=== PATIENT | male | born 1955 | race Caucasian/White ===

== ENCOUNTER 2018-10-11 12:16 | Emergency (ER) | payer OTHER, SELFPAY ==
[2018-10-11] VITALS (17 sets, daily range): BP systolic 126–166; BP diastolic 75–110; PULSE 79–94; RESP 8–29; TEMP 36.1–37.1; O2SAT 86–100
--- NOTE | 2018-10-11 12:31 | DI.RAD_ITS ---
SYMPTOM/DIAGNOSIS: RT CP AFTER FALL, R/O RIB FX AND PNEUMONIA CHEST X-RAY: Portable AP view. No priors. Heart size and pulmonary vasculature are within normal limits. The lungs appear clear. No effusion or definite pneumothorax seen based on this chest x-ray. The bones appear intact. IMPRESSION: No acute pulmonary process. Please refer to the CT scan of the chest, abdomen and pelvis for complete details.
[2018-10-11] MEDS: Acetaminophen 500 MG TAB 1000 MG PO (12:38)
[2018-10-11] MEDS: Ibuprofen 800 MG TAB PO (12:39)
[2018-10-11] MEDS: Lidocaine 5% Patch 1 PATCH TP (12:39)
[2018-10-11] MEDS: MORPHine 10 MG/ML VIAL 4 MG IVP (12:40)
--- NOTE | 2018-10-11 12:42 | ED.GENADUL_ITS ---
Discharge Plan Disposition Patient Disposition: HOME Condition: Good Discharge Details Chief Complaint: Chest/Rib Clinical Impression: Pneumothorax, Right rib fracture, AAA (abdominal aortic aneurysm), Nodule of kidney Primary Care Provider: ANGEL[facility] Provider: Jani Mendoza Home Meds and New Rx's Prescriptions: New lidocaine [Lidoderm] 1 PATCH patch 1 patch Topical Q24H Qty: 4 RF: 0 acetaminophen [Mapap Extra Strength] 500 MG tablet 1,000 mg PO Q6H 5 Days Qty: 60 RF: 0 ibuprofen [Motrin IB] 200 MG tablet 600 mg PO Q6H 5 Days Qty: 60 RF: 0 hydrocodone-acetaminophen 7.5-325 mg tablet 1 tab PO Q6H Qty: 14 RF: 0 No Action gabapentin 300 mg Capsule 300 mg PO TID RF: 0 Discharge Instructions Instructions: Traumatic Pneumothorax (ED), Rib Fracture (ED), Abdominal Aortic Aneurysm (GEN) Additional Instructions: Please take the Tylenol, Motrin and Lidoderm patches as needed. Please take the Millis is only for breakthrough pain. If you take the Millis do not take a Tylenol as Millis does have Tylenol in it already. Please continue to use the incentive spirometer daily, make sure you are breathing greater than [id number] mL. Please follow-up with your family doctor as soon as possible for reevaluation of the nodules, as well as your AAA. If you notice any shortness of breath, worsening chest pain, feeling like he want to pass out, please return immediately. If you notice any worsening of your symptoms, or any new symptoms such as vomiting, diarrhea, fever, chills, shortness of breath, chest pain, numbness, weakness, or fainting , please return immediately to the emergency department for reevaluation. Please follow up with your primary care provider as soon as possible for reassessment and reevaluation. As always, it was a pleasure participating in your medical care today. CT abdomen and pelvis iMPRESSION: 1. Small pneumothorax anteriorly in the right base 7 mm in width. Anterior to the heart 12 mm in width. 2. Minimally displaced fracture right posterior 10th rib. 3. Mild right pleural effusion. 4. Mild opacities in both bases may represent contusions. 5. Unruptured ascending aortic aneurysm [address] abdomen and pelvis iMPRESSION: 1. 14 mm nodule posterior right kidney 42 Hounsfield units. Recommend surgical evaluation. Alternatively, if patient has a limited life expectancy or significant co-morbidities, 3-[address] or MRI follow-up could be performed. 2. Left adrenal nodule 2.1 x 1.4 cm . Recommend follow-up abdominal CT or MR in 12 months. Alternatively, if there is a history of malignancy, consider further evaluation with PET, unenhanced abdominal CT or MR. 3. Borderline splenomegaly 13 cm. Differential diagnosis of splenomegaly is lymphoma/leukemia, mononucleosis, hemolytic anemia, portal hypertension. 4. 17 mm nodule 28 Hounsfield units left lobe of the liver 10 mm nodule left lobe of the liver in 19-21 Hounsfield units Recommend follow-up abdominal CT or MR in 6 months. Medical Decision Making This is a pleasant 63-year-old male with no significant past medical history who presents today for evaluation of right-sided rib pain. The patient [place] when he had a mechanical slip and fall and hit his right back on a hard rock. Patient immediately had pleuritic chest pain, and came in for evaluation. Physical exam demonstrates no evidence of tracheal deviation, hypotension, tachycardia, or hypoxemia. I am concerned for rib fractures versus pneumothorax, we will get a chest x-ray to rule out pneumothorax. No abdominal tenderness, pain is on the right rather than left away from the spleen. Feel that intra-abdominal etiology is clinically inconsistent with his current clinical picture. Bedside ultrasound does demonstrate minimal lung siding however the findings are present on both sides concerning for splinting. I feel that x-ray would be helpful for further rule out. We will control the patient's pain, and reassess. 1:15 PM 3 does demonstrate questionable pneumothorax on the right. However x-ray image is certainly poor. There is certainly no evidence of tension pneumothorax, no evidence of tracheal deviation both clinically and on chest x-ray. He appears hemodynamically stable. With pain medication the patient's pain is now completely relieved and he is stating I would like to go out hunting again please. We will get a CT scan for further evaluation, prior to any invasive procedure. EKG 12: 33 Rate 88, intervals normal, sinus rhythm, no ST elevations or depressions, no T wave inversions or Q waves. 2:[address] scan results demonstrate very minimal pneumothorax, I discussed it with the radiologist and she feels that it is less than 2%. He does have a few other nodules, as well as an undiagnosed AAA, but within normal limits, with no other acute significant abnormalities. Rib fracture is noted, but no significant hemothorax. On reevaluation the patient continues to feel excellent. Incentive spirometer demonstrates volumes well over 3000 mL's, closer to 5000. His pain is controlled, his oxygen saturations are excellent. We had a prolonged observation phase here on high flow oxygen, he continues to demonstrate an excellent clinical picture. Patient was then trialed for an extended period off of any supplemental oxygen he is done very well, with no evidence of hypoxemia whatsoever. After a prolonged observation period here in the ED he do think that he is stable for potential discharge. Patient is requesting to be discharged and does not want to stay overnight or for observation, and I do feel that this is reasonable. I did review the case with Dr. Lynn, he agreed with the current management plan. Patient will be discharged home with close follow-up and repeat imaging for his nodules, AAA, and pneumothorax with his PCP. We discussed red flags, including signs and symptoms concerning for AAA rupture, tension pneumothorax, and development of pneumonia and the patient understands. I have extensively reviewed the treatment plan and discharge instructions with the patient and their family. I have addressed all patient concerns at this time. The patient and family was made aware of what symptoms to monitor for that would warrant a return to the emergency department. Discussed the plan with the patient and family, they demonstrate verbal understanding and agreement with our assessment and plan at this time. CT abdomen and pelvis iMPRESSION: 1. Small pneumothorax anteriorly in the right base 7 mm in width. Anterior to the heart 12 mm in width. 2. Minimally displaced fracture right posterior 10th rib. 3. Mild right pleural effusion. 4. Mild opacities in both bases may represent contusions. 5. Unruptured ascending aortic aneurysm [address] abdomen and pelvis iMPRESSION: 1. 14 mm nodule posterior right kidney 42 Hounsfield units. Recommend surgical evaluation. Alternatively, if patient has a limited life expectancy or significant co-morbidities, 3-[address] or MRI follow-up could be performed. 2. Left adrenal nodule 2.1 x 1.4 cm . Recommend follow-up abdominal CT or MR in 12 months. Alternatively, if there is a history of malignancy, consider further evaluation with PET, unenhanced abdominal CT or MR. 3. Borderline splenomegaly 13 cm. Differential diagnosis of splenomegaly is lymphoma/leukemia, mononucleosis, hemolytic anemia, portal hypertension. 4. 17 mm nodule 28 Hounsfield units left lobe of the liver 10 mm nodule left lobe of the liver in 19-21 Hounsfield units Recommend follow-up abdominal CT or MR in 6 months. HPI General Date/Time Provider Initiated Documentation: 10/11/18 12:18 . HPI Narrative: This is a 63-year-old male with no past medical history except for occasional gabapentin use who presents today for evaluation of right-sided chest pain. Patient states that he [place] and fell on a rock via a mechanical fall. He denies hitting his head, he is not on any blood thinners. He landed on his right back ribs. He states that he immediately developed notable chest pain, worse to breathe, worse to touch. Improved by nothing. He came right to the ER for further evaluation. Aside for his right-sided chest pain in the posterior aspect along the lower posterior ribs he denies any abdominal pain, hip or arm pain, headache. He denies any bleeding, loss of consciousness or any other complaints. No other modifying factors. He denies any allergies, any recent surgeries, or any other complaints. Related Data Home Medications Medication Instructions Recorded Confirmed acetaminophen [Mapap Extra 1,000 mg PO Q6H 5 Days #60 tab 10/11/18 Strength] gabapentin 300 mg PO TID 10/11/18 10/11/18 hydrocodone-acetaminophen 1 tab PO Q6H #14 tab 10/11/18 ibuprofen [Motrin Ib] 600 mg PO Q6H 5 Days #60 tab 10/11/18 lidocaine [Lidoderm] 1 patch TOPICAL Q24H #4 patch 10/11/18 Previous Rx's Medication Instructions Recorded acetaminophen [Mapap Extra 1,000 mg PO Q6H 5 Days #60 tab 10/11/18 Strength] hydrocodone-acetaminophen 1 tab PO Q6H #14 tab 10/11/18 ibuprofen [Motrin Ib] 600 mg PO Q6H 5 Days #60 tab 10/11/18 lidocaine [Lidoderm] 1 patch TOPICAL Q24H #4 patch 10/11/18 Allergies Allergy/AdvReac Type Severity Reaction Status Date / Time No Known Allergies Allergy Unverified 10/11/18 12:30 General Stated Complaint: Chest/Rib MARIA DOLORES: 3 Review of Systems Review of Systems All systems reviewed & are unremarkable except as noted in HPI and below PFSH Social History Smoking/Tobacco Use Status: Never Exam Narrative Exam Narrative: 1.Const: Well-nourished, Well-developed, appearing stated age 2.Eyes: PERRL, no conjunctival injection, and symmetrical lids. 3.ENT: Atraumatic external nose and ears. Moist MM. Neck: Symmetric, trachea midline, No thyromegaly. 4.CVS: +S1/S2, No murmurs or gallops. Peripheral pulses 2+ and equal in all extremities. Brisk capillary refill in all extremities. 5.RESP: Airway clear, no obstructions. No abrasions or ecchymosis. Chest movement symmetric with respirations. Notable right sided chest wall tenderness over the right posterior ribs. No evidence of bruising, deformity, or flail chest. Trachea midline. No crepitus. No step offs. No paradoxical movements. Lungs are clear to auscultation bilaterally but reduced secondary to splinting. No rales, rhonchi, wheezing or stridor. Breath sound symmetric. No Sucking chest wounds. No clinical evidence of significant chest trauma. 6.GI: Soft, nondistended, nontender. Bowel tones normoactive. No masses or organomegaly. No ecchymosis or abrasions. No periumbilical ecchymosis or seatbelt sign. No flank or CVA tenderness. No clinical signs of significant trauma. No clinical evidence of significant abdominal trauma. 7.MSK: No gross deformities or discolorations or lesions. Tolerates full range of motion of extremities without tenderness. All compartments of upper and lower extremities are soft with no tenderness. Vascular exam demonstrates brisk capillary refill and intact pulses in all extremities. Pelvic exam demonstrates a stable pelvis, nontender to lateral compression and palpation of symphysis pubis.. No clinical evidence of significant musculoskeletal trauma. 8.Skin: Warm, Dry. No rashes or lesions. 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 Sensation grossly intact, no focal neurologic deficits. 10.Psych: (AAO) x3. Appropriate mood and affect Course Vital Signs Temperature 36.1 C L 10/11/18 12:30 Pulse 87 10/11/18 12:30 Respiratory Rate 29 H 10/11/18 12:30 Blood Pressure 151/110 H 10/11/18 12:30 Pulse Oximetry 96 10/11/18 12:30 Temperature 36.1 C L 10/11/18 12:30 Temperature Source Temporal Artery Scan 10/11/18 12:30 Pulse 87 10/11/18 12:30 Respiratory Rate 29 H 10/11/18 12:30 Blood Pressure 151/110 H 10/11/18 12:30 Blood Pressure Position Sitting 10/11/18 12:30 Pulse Oximetry 96 10/11/18 12:30 Oxygen Delivery Method Room Air 10/11/18 12:30 Oxygen Flow Rate 0 10/11/18 12:30 Comment 10/11/18 12:30
--- NOTE | 2018-10-11 12:52 | DI.CT_ITS ---
SYMPTOM/DIAGNOSIS: FALL, SUSPECTED PNEUMONIA ON X-RAY, SEVERE PAIN CT CHEST, ABDOMEN AND PELVIS: CT scan of the chest, abdomen and pelvis was performed following the uneventful administration of intravenous contrast material. There are no priors for comparison. CT ABDOMEN AND PELVIS: There are several hypodense lesions seen in the liver, most of which appear to represent cysts. There are several tiny lesions which are too small for further characterization. The gallbladder is negative. No biliary ductal dilatation. The portal and superior mesenteric veins are patent. The pancreas is unremarkable. The spleen is at the upper limits of normal measuring 13 cm. There is a small left adrenal nodule likely reflecting a benign lesion such as an adenoma. The right adrenal gland is unremarkable. The kidneys show normal and symmetric enhancement. There is a 1.5 cm cyst in the anterior aspect of the right lobe of the liver. There is a 1.4 cm hypodense lesion in the posterior right kidney. It's density is slightly higher than a normal cyst. While this may represent a hemorrhagic cyst a solid renal mass cannot be excluded and follow up is recommended. No nephrolithiasis or hydronephrosis is seen. The urinary bladder is intact. The reproductive organs are grossly unremarkable. The bowel shows no evidence of obstruction or inflammation. No findings to suggest an acute appendicitis are present. A normal appendix is seen in the right lower quadrant. The abdominal aorta is of normal caliber. No evidence of an abdominal aortic aneurysm or significant abdominal or pelvic adenopathy, ascites, or pneumoperitoneum is seen. The bones are intact. No acute fracture is seen. The patient has a left total hip replacement. IMPRESSION: 1. No evidence of an acute abdomen 2. 1.4 cm nodule on the posterior aspect of the right kidney. It's density is not consistent with a benign appearing cyst. Follow up is recommended. This may include an ultrasound or MRI. 3. Left adrenal nodule. If there is no history of malignancy this may represent a benign lesion such as an adenoma and a 12-month follow up is recommended. 4. Hypodense lesion is seen within the liver, likely reflecting cysts. There is a lesion in the left lobe which is slightly of higher density. Ultrasound or MRI should be considered for further evaluation. CT CHEST: The thoracic aorta is intact without evidence of dissection. Heart size is within normal limits. No significant pericardial effusion is seen. No significant thoracic adenopathy is present. There may be a small right pleural effusion. No left pleural effusion is identified. There is a small pneumothorax present best appreciated anteriorly in the right hemithorax, anterior to the heart. It measures approximately 1.2 cm in diameter. Dependent opacities are seen in the lungs. These may represent areas of atelectasis or possible contusions. The tracheobronchial tree is unremarkable. There is a minimally displaced fracture of the posterior lateral aspect of the right 10th rib. No other acute fractures are identified. Degenerative changes are present in the spine. IMPRESSION: 1. Minimally displaced right posterolateral 10th rib fracture 2. Small pneumothorax best appreciate in the anterior aspect of the right hemithorax 3. Tiny right pleural effusion 4. Small opacities seen in the dependent portions of the lungs bilaterally. These may represent areas of atelectasis or contusion.
[2018-10-11 13:01] LABS: Abs Immature Grans 0.04 k/cumm (0.0-0.09); Absolute Basophil Count 0.04 k/cumm (0.0-0.2); Absolute Eosinophil Count 0.04 k/cumm (0.0-0.7); Absolute Monocyte Count 0.48 k/cumm (0.11-0.7); Absolute Neutrophil Count 10.01 k/cumm (1.2-6.7); Basophils % 0.3; Eosinophils % 0.3; HCT 44.9 % (40.0-50.0); Immature Grans % 0.3; Lymphocytes % 10.2; Mean Corp. HGB Concentration 33.4 g/dL (32.0-36.0); Mean Corpuscular Hemoglobin 30.4 pg (27.0-33.0); Mean Corpuscular Volume 91.1 fL (80-95); Mean Platelet Volume 11.1 fL (8.0-11.0); Monocytes % 4.1; Neutrophils % 84.8; Platelet Count 237 x1000/uL (130-400); RBC 4.93 m/cumm (4.50-6.00); RBC Distribution Width 14.5 % (11.8-14.1)
[2018-10-11 13:15] LABS: ALT 52 U/L (12-78); AST 31 U/L (15-37); Albumin 4.5 g/dL (3.4-5.0); Alkaline Phosphatase 87 U/L (46-116); Anion Gap 12.1 mmol/L (3-11); BUN 20 mg/dL (7-18); Bilirubin, Total 0.5 mg/dL (0.2-1.0); CO2 25.9 mmol/L (21.0-32.0); CREATININE 1.12 mg/dL (0.70-1.30); Calcium 9.4 mg/dL (8.5-10.1); Chloride 103 mmol/L (98-107); Glucose 105 mg/dL (70-100); Potassium 4.4 mmol/L (3.5-5.1); Sodium 141 mmol/L (136-145); Troponin I < 0.02 ng/mL (0.00-0.06)
[2018-10-11] MEDS: Omnipaque 350 MG/ML 100 ML BTL IJ (13:18)
--- NOTE | 2018-10-11 13:52 | DI.VRAD_ITS ---
EXAM: XR Chest, 1 View EXAM DATE/TIME: 10/11/2018 12:47 PM CLINICAL HISTORY: 63 years old, male; Pain; Other: Fall from standing position onto rock; Additional info: RT rib/chest pain TECHNIQUE: XR of the chest, 1 view. COMPARISON: No relevant prior studies available. FINDINGS: Lungs: No focal consolidation Pleural space: Unremarkable. No pleural effusion. No pneumothorax. Heart/Mediastinum: Unremarkable. No cardiomegaly. Vasculature: Tortuous aorta Bones/joints: Unremarkable. IMPRESSION: No focal consolidation Dictated and Authenticated by: Brittany Lee MD. Ordering:ERROL HILTON MD
--- NOTE | 2018-10-11 14:16 | DI.VRAD_ITS ---
EXAM: CT Chest With Intravenous Contrast EXAM DATE/TIME: 10/11/2018 1:00 PM CLINICAL HISTORY: 63 years old, male; Pain; Other: Fall suspected pneumo severe pain; Additional info: RT rib/chest pain TECHNIQUE: Axial computed tomography images of the chest with intravenous contrast. All CT scans at this facility use at least one of these dose optimization techniques: automated exposure control; mA and/or kV adjustment per patient size (includes targeted exams where dose is matched to clinical indication); or iterative reconstruction. Coronal and sagittal reformatted images were created and reviewed. CONTRAST: 100 ml of OMNI 350 administered intravenously. COMPARISON: No relevant prior studies available. FINDINGS: Lungs: Mild opacities in both bases may represent contusions. Pleural space: Small pneumothorax anteriorly in the right base 7 mm in width. Anterior to the heart 12 mm in width. Mild right pleural effusion. Heart: No cardiomegaly or Aorta: Unruptured ascending aortic aneurysm 4 cm. Lymph nodes: Unremarkable. No enlarged lymph nodes. Bones/joints: Minimally displaced fracture right posterior 10th rib. Soft tissues: Unremarkable. IMPRESSION: 1. Small pneumothorax anteriorly in the right base 7 mm in width. Anterior to the heart 12 mm in width. 2. Minimally displaced fracture right posterior 10th rib. 3. Mild right pleural effusion. 4. Mild opacities in both bases may represent contusions. 5. Unruptured ascending aortic aneurysm 4 cm. EXAM: CT Abdomen and Pelvis With Intravenous Contrast EXAM DATE/TIME: 10/11/2018 1:00 PM CLINICAL HISTORY: 63 years old, male; Pain; Other: Fall suspected pneumo severe pain; Additional info: RT rib/chest pain TECHNIQUE: Axial computed tomography images of the abdomen and pelvis with intravenous contrast. All CT scans at this facility use at least one of these dose optimization techniques: automated exposure control; mA and/or kV adjustment per patient size (includes targeted exams where dose is matched to clinical indication); or iterative reconstruction. Coronal and sagittal reformatted images were created and reviewed. CONTRAST: 100 ml of omni 350 administered intravenously. COMPARISON: No relevant prior studies available. FINDINGS: Lower thorax: See report for CT chest ABDOMEN: Liver: Multiple low attenuation areas in the liver.. 18 mm cyst right lobe of the liver. 17 mm nodule 28 Hounsfield units left lobe of the liver 10 mm nodule left lobe of the liver in 19-21 Hounsfield units. Additional smaller low attenuation areas are too small for characterization Gallbladder and bile ducts: Normal. No calcified stones. No ductal dilation. Pancreas: Normal. No ductal dilation. Spleen: Borderline splenomegaly 13 cm. Adrenals: Left adrenal nodule 2.1 x 1.4 cm . Kidneys and ureters: 15 mm cyst in the anterior right kidney 14 mm nodule posterior right kidney 42 Hounsfield units. Stomach and bowel: Normal. No obstruction. No mucosal thickening. Appendix: Normal appendix PELVIS: Bladder: Unremarkable as visualized. Reproductive: Unremarkable as visualized. ABDOMEN and PELVIS: Intraperitoneal space: Normal. No free air. No significant fluid collection. Bones/joints: Left total hip replacement Soft tissues: Possible mesh herniorrhaphy anteriorly in the midline. (7:93) Adjacent inflammatory changes. Vasculature: Normal. No abdominal aortic aneurysm. Lymph nodes: Normal. No enlarged lymph nodes. IMPRESSION: 1. 14 mm nodule posterior right kidney 42 Hounsfield units. Recommend surgical evaluation. Alternatively, if patient has a limited life expectancy or significant co-morbidities, 3-[address] or MRI follow-up could be performed. 2. Left adrenal nodule 2.1 x 1.4 cm . Recommend follow-up abdominal CT or MR in 12 months. Alternatively, if there is a history of malignancy, consider further evaluation with PET, unenhanced abdominal CT or MR. 3. Borderline splenomegaly 13 cm. Differential diagnosis of splenomegaly is lymphoma/leukemia, mononucleosis, hemolytic anemia, portal hypertension. 4. 17 mm nodule 28 Hounsfield units left lobe of the liver 10 mm nodule left lobe of the liver in 19-21 Hounsfield units Recommend follow-up abdominal CT or MR in 6 months. Dictated and Authenticated by: Brittany Lee MD. Ordering:ERROL HILTON MD
--- NOTE | 2018-10-11 14:41 | NUR.NOTE ---
Xray and CT findings reviewed with Ferdinand by Dr. Mendoza. Use of IS up to 2500cc observed by Dr. Szymanski Note:
== END 2018-10-11 15:20 | disposition home or self-care (01) ==
LOC: ER 15:00
PROVIDERS: Emergency Provider Student in an Organized Health Care Education/Training Program
DX: J93.9 Pneumothorax, unspecified (principal); S22.31XA Fracture of one rib, right side, initial encounter for closed fracture; I71.4 Abdominal aortic aneurysm, without rupture; N28.89 Other specified disorders of kidney and ureter; W01.0XXA Fall on same level from slipping, tripping and stumbling without subsequent striking against object, initial encounter
CPT/HCPCS: 74177; 80053; 96374; 99285; 71045; 71260; 84484; 85025; J2270; J3490